=== PATIENT | female | born 1940 | race Caucasian/White ===

== ENCOUNTER 2019-09-20 10:03 | Observation (INO) | payer MEDICARE, SELFPAY ==
[2019-09-19 14:29] VITALS: BMI 25.8
[2019-09-20 07:45] VITALS: BP 171/87; PULSE 70; RESP 16; TEMP 36.6; O2SAT 96
[2019-09-20 08:05] LABS: Basophils % 0.3 %; Eosinophils % 0.1 %; Hematocrit 43.4 % (37.0-47.0); Hemoglobin 14.2 g/dL (11.5-15.3); Lymphocytes # 1.5 10^3/uL (0.8-4.8); Lymphocytes % 11.5 %; Mean Corpuscular HGB Conc 32.7 g/dL (30.0-36.0); Mean Corpuscular Hemoglobin 28.9 pg (28.0-34.0); Mean Corpuscular Volume 88.2 fL (81-99); Mean Platelet Volume 11.1 fL (7.4-10.4); Monocytes # 0.7 10^3/uL (0.2-0.9); Monocytes % 5.3 %; Neutrophils % 80.8 %; Nucleated Red Blood Cells % 0 %; Platelet Count 497 10^3/cmm (130-400); Red Blood Count 4.92 10^6/uL (4.1-5.3); Red Cell Distribution Width 13.6 % (12.1-15.1); White Blood Count 12.8 10^3/uL (4.0-10.0)
[2019-09-20 08:13] LABS: INR 1.05 (0.8-1.2)
[2019-09-20 08:17] LABS: Anion Gap 15.6 (5-19); Blood Urea Nitrogen 20 mg/dL (8-23); Calcium 8.9 mg/dL (8.5-10.5); Carbon Dioxide 25 mmol/L (22-29); Chloride 100 mmol/L (98-107); Glucose 277 mg/dL (65-115); Osmolality Calculated 288 mOsm/kg (285-295); Potassium 4.6 mmol/L (3.5-5.1); Sodium 136 mmol/L (136-145)
--- NOTE | 2019-09-20 08:45 | SUR.PREOP ---
DR GONCALVES NOTIFIED OF WBC OF 12.8. NEW ORDERS RECEIVED FOR STAT UA. DR GONCALVES ALSO QUESTIONED THIS NURSE TO WHY THE PACEMAKER REP HADN'T MADE IT YET. THE [facility] REP WAS CALLED AND HE STATES THAT THEY WERE NOT INFORMED OF TODAY'S PROCEDURE. DR GONCALVES WAS NOTIFIED AND HE STATES THAT WE NEED TO GET THE RESULTS BACK FROM THE [facility] AND GO FROM THERE.
[2019-09-20 09:32] LABS: Add Urine Microscopic? NO
[2019-09-20 09:46] LABS: Bilirubin Urine Neg (NEGATIVE); Blood Urine Neg (Negative); Glucose Urine UA 4+ (Normal); Ketones Urine Negative (Negative); Leukocyte Esterase Urine Negative (Negative); Nitrate Urine Negative (Negative); Protein Urine Neg (Negative); Specific Gravity, Urine 1.015 (1.005-1.030); Urine Appearance Clear (CLEAR); Urine Color Yellow (Yellow); Urobilinogen Urine Norm (Negative); pH Urine 6.5 (5-7)
--- NOTE | 2019-09-20 10:05 | SUR.PREOP ---
Report Called Report called to FERNANDO Vogt. Will transfer to room 268. Procedure postponed until [id number] Rep unavailability. Patient transferred via Wheelchair.
--- NOTE | 2019-09-20 14:34 | W.PM.OPSUD ---
Surgery/Procedure H&P Update DATE OF PROCEDURE: September 20, 2019 DATE H&P PERFORMED: 08/26/19 H&P UPDATE INFORMATION: I have reviewed H&P completed within last 30 days, I have examined patient prior to procedure and No changes to prior documentation PREOP DIAGNOSIS: Permanent pacemaker, [place] PLANNED PROCEDURE: Operation Date: 09/20/19 08:30 Proposed Procedures p Pacemaker Generator Change(Not Applicable) - Gera Davis MD PATIENT REASSESSED PRIOR TO SEDATION, WITH NO CHANGE NOTED: Yes PHYSICAL EXAM: alert, oriented x 3, clear to auscultation bilaterally and regular rate & rhythm AIRWAY EVAL/ANESTHESIA PLAN: normal airway, ASA III, Local Anesthesia, Risks, benefits & alternatives of sedation and/or procedure discussed and Patient agrees to continue as planned
--- NOTE | 2019-09-20 15:42 | PM.OP ---
Operative Report Date of procedure: September 20, 2019 Pre-op Diagnosis: Permanent pacemaker, AUGUSTA Procedure: PROCEDURE: PACEMAKER REVISION PREOPERATIVE DIAGNOSIS: Pacemaker elective replacement indication. POSTOPERATIVE DIAGNOSIS: Pacemaker elective replacement indication. ESTIMATED BLOOD LOSS: Around 5 milliliters. COMPLICATIONS: None. BRIEF HISTORY: The patient is an 79-year-old white female who had a permanent pacemaker implantation for symptomatic bradycardia. The patient was found to have elective replacement indication, during routine office followup evaluation. For further management of patient's condition for the symptomatic bradycardia, the patient required a pacemaker revision. The procedure was explained to the patient and her family in detail with the risks and benefits. The risks of bleeding, hematoma, vascular injury, infection and other concomitant complications were explained in detail, which the patient understood well and consented to proceed. PROCEDURES PERFORMED: 1. Explantation of the old pacemaker generator. 2. Implantation of the new generator. The patient brought to the Cardiac Croze Machine Operator. The left side of the neck and the subclavian area were cleaned and draped in a sterile fashion. 1% Xylocaine was used for local anesthetic agent. A 2 inch long incision was made just below the previous pacemaker scar. By sharp and blunt dissection, the pacemaker pocket was accessed. The old generator was delivered from the pocket. The generator was detached from the leads. The new [facility] [employer] generator was attached to the lead. The pacemaker pocket was copiously irrigated with vancomycin solution. Complete hemostasis was achieved. The lead was positioned behind the generator and the generator was attached to the pectoralis fascia by suturing with 0 Surgilon. Sponge counts were confirmed. The pacemaker pocket was closed in layers. Skin was approximated using 4-0 Vicryl. EXPLANTED DEVICE: Pacemaker Generator: Brand: Virtual [employer] DR RF Model number: [id number]. Serial number: [id number]. Date of implant: 08/12/2009 IMPLANTED DEVICES: Ventricular Lead: Date of implantation: 08/12/2009 Model number: 1688 TC/52cm Serial number:[id number] Make: [employer]. Atrial lead Date of implantation: 08/12/2009 Model number:1688TC/46cm Serial number: [id number] Make: [employer] Implanted Generator: Date of implantation : 09/20/2019 Brand: Volt. Model number: [id number] Serial number: [id number] Make: [employer] Stimulation Threshold: The ventricular sensing was 10.3 millivolts. Lead impedance was 510 and the pacing threshold was 1.0 volts at 0.4 milliseconds. The atrial lead sensing was 4.7 mV. Impedance of 531 ohms and pacing threshold of 0.75 V at 0.4 ms The pacemaker was set for DDDR mode with an upper rate of 120 and a lower rate of 60. Paced/sensed AV delay-200/150; VIP 150 A pressure dressing was applied over the pacemaker site. The patient was transferred back to medical floor in stable condition. Sponge counts were correct.
[2019-09-20 16:00] VITALS: BP 160/85; PULSE 66; RESP 16; TEMP 36.3; O2SAT 97
--- NOTE | 2019-09-20 16:45 | PC.NURSE ---
HOME MEDICATIONS DR. IVANNA MARQUEZED PATIENT TO TAKE HOME MEDICATIONS. MEDICATIONS AT BEDSIDE.
[2019-09-20 17:02] VITALS: BP 114/65; PULSE 67; RESP 16; TEMP 36.3; O2SAT 97
[2019-09-20 18:58] VITALS: BP 137/68; PULSE 70; RESP 16; TEMP 36.2; O2SAT 94
[2019-09-20 20:00] VITALS: BP 132/71; PULSE 73; RESP 17; TEMP 36.4; O2SAT 94
[2019-09-20] MEDS: acetaminophen 325 mg Tablet 650 MG PO (22:18)
[2019-09-20] MEDS: sodium chloride 0.9% 1,000 ML 75 ML IV (22:18)
[2019-09-21] VITALS: BP 131/71; PULSE 69; RESP 18; TEMP 36.8; O2SAT 95
[2019-09-21 04:00] VITALS: BP 136/73; PULSE 72; RESP 17; TEMP 36.7; O2SAT 96
--- NOTE | 2019-09-21 06:00 | ECG_ITS ---
[facility] Test Date: 2019-09-21 Pat Name: Alicia Cohn Department: Room: 268 Gender: Female Body Man: : 1940 Requested By: Gera Davis Order Number: [id number] Angelica MD: Liz Mohamud M.D. Measurements Intervals [place] Rate: 69 P: 137 WV: 191 QRS: 5 QRSD: 91 T: -6 QT: 362 QTc: 390 Interpretive Statements ELECTRONIC ATRIAL PACEMAKER MINIMAL ST DEPRESSION [0.025+ mV ST DEPRESSION] ABNORMAL RHYTHM ECG No previous ECG available for comparison Electronically Signed On 09-21-2019 22:50:05 CDT by Liz Mohamud M.D. [id number]
[2019-09-21 08:00] VITALS: BP 166/80; PULSE 74; RESP 18; TEMP 36.6; O2SAT 94
[2019-09-21 08:33] VITALS: BP 136/73; PULSE 72
--- NOTE | 2019-09-21 10:00 | PC.CHAP ---
Pastoral Care Encounter/Spiritual Assessment Type of Contact [] Declined feed elevator worker visit [] Patient/Family/Request visit [] Outpatient visit [] Follow-up visit [] Physician referral [] Code/Alert [X] Routine visit [] Staff referral [] Actively dying [] Patient sleeping [] Family support [] [] Out of room [] Palliative care [] [] Receiving care in room [] Pre-surgical visit [] Trauma [] Long length of stay [] ICU visit [] Other: Relational/Emotional Strength [] Patient feels connected with others/family/visitors/staff [] Distress [] Loneliness/isolation [] Abandonment Spirituality of Patient [] Person of Ofe [] Attends Jainism of their Ofe [] Believes in Prayer [] Reads Bible or Adventism materials [] There are Spiritual issues to be addressed Transitions Manager Rn Interventions [] Prayer [] Active listening [] Non-anxious presence [] Spiritual/emotional support [] Crisis/trauma care [] Spiritual counseling [] Bereavement support [] Provided bereavement packet [] Provided Bible/devotional materials [] Provided toy/stuffed animal, coloring book to patient or family member [] Provided Communion [] Anointing/[place] [] Salvation [] Completed spiritual assessment [] Other: Impact on Illness or Injury [] Angry [] Fearful [] Anxious [] Often cries [] Exhaustion [] Unable to work [] Unable to attend cheondoism [] Unable to walk/stand [] Unable to read [] Unable to drive [] Unable to eat/drink [] Unable to sleep [] Unable to be with family [] Patient intubated [] Other: Summary Time spent with patient
[2019-09-21 12:00] VITALS: BP 164/79; PULSE 70; RESP 16; TEMP 36.7; O2SAT 95
[2019-09-21 15:20] VITALS: BP 164/79; PULSE 70; RESP 16; TEMP 36.7; O2SAT 95
--- NOTE | 2019-09-21 18:26 | PM.SDS ---
Short Stay Summary Providers Date of Admit/Discharge: 09/21/19 Attending Provider: MD Liz Pierce MD Primary Care Provider: Jamison Menendez Chief Complaint: pacemaker generator change HPI History of Present Illness Alicia Cohn is a 79 year old female past medical history significant for hypertension, paroxysmal atrial fibrillation on dronedarone history of permanent pacemaker placement for therapeutic and bradycardia underwent generator change for AUG[place]A yesterday. Patient is not on anticoagulation due to her own refusal. Postop care remains uncomplicated. This morning she has brief episodes of spinning of the world around her while sitting she did not pass out. There is no telemetry evidence of bradyarrhythmia. Pacemaker check was performed which showed DDD R and more than 90% paced in the atrium, please note that I was informed by nurse regarding these results. Patient overall doing fine from a cardiovascular perspective she denies any further dizziness spinning of the world around her she is hemodynamically stable. She is being discharged home. She is advised to follow-up with pacemaker clinic in 1 week. Home Meds/Allergies Home Medications and Allergies Home Medications Medication Instructions Recorded Confirmed Type aspirin 325 mg tablet 325 mg PO DAILY 07/31/19 09/20/19 History digoxin 125 mcg (0.125 mg) tablet 125 mcg PO DAILY 07/31/19 09/20/19 History diltiazem HCl 120 mg 120 mg PO DAILY 07/31/19 09/20/19 History capsule,extended release 24 hr losartan 100 mg tablet 100 mg PO DAILY 07/31/19 09/20/19 History metoprolol tartrate 25 mg tablet 25 mg PO BID 07/31/19 09/20/19 History potassium chloride 10 mEq 10 meq PO DAILY 07/31/19 09/20/19 History tablet,extended release pravastatin 20 mg tablet 20 mg PO DAILY 07/31/19 09/20/19 History dronedarone 400 mg tablet 400 mg PO BID 08/01/19 09/20/19 History Allergies Allergy/AdvReac Type Severity Reaction Status Date / Time codeine Allergy Unknown Unknown Verified 09/20/19 08:24 latex Allergy rash Verified 09/20/19 08:24 PFSH Acute PFSH: Medical History Atherosclerotic heart disease of [place] coronary artery with other forms of angina pectoris Atrial fibrillation CAD (coronary artery disease) HTN (hypertension) Hx of cardiac pacemaker Pacemaker malfunction Surgical History S/P bladder repair S/P cardiac pacemaker procedure (~2009) S/P dilatation and curettage S/P hip arthroscopy (~2017) S/P PTCA (percutaneous transluminal coronary angioplasty) (~2007) 2007 S/P tubal ligation Family History Sister Hypertension Stroke Hypercholesterolemia Heart disease Cancer bladder and ovarian CA Mother Hypertension Stroke Hypercholesterolemia Brother Heart disease Social History Smoking and tobacco status: former smoker Vitals/I&O/Wt Last Vital Signs Temp 98.1 F 09/21/19 15:20 Pulse 70 09/21/19 15:20 Resp 16 09/21/19 15:20 BP 164/79 09/21/19 15:20 Pulse Ox 95 09/21/19 15:20 09/21/19 09/21/19 09/21/19 06:59 14:59 22:59 Intake Total 150 / 200 360 / 360 Balance 150 / 200 360 / 360 Physical Exam Narrative: EXAM NARRATIVE: GENERAL: Patient is alert, awake and oriented x3. Pacemaker wound is packed there is no hematoma. Patient denies any tenderness or pain NECK: No jugular vein distension. HEENT: No cyanosis. No icterus. No pallor. HEART: Regular S1 and S2. No murmur, rub or gallop. LUNGS: Clear to auscultate bilaterally. ABDOMEN: Soft, nontender and nondistended. Positive bowel sounds. No guarding, rebound or tenderness. CENTRAL NERVOUS SYSTEM: Grossly nonfocal. EXTREMITIES: Lower extremities without edema bilaterally. Hospital Course Discharge Summary: As above SSS Data Data Completed and Pending: Pending at discharge Category Date Time Status PRIMARY OPERATOR request for service Routin e Exams 09/20/19 12:00 Ordered Diagnoses at Discharge Discharge Diagnosis (1) Pacemaker end of life: Status: Acute Problem details: Status post generator change for AUGUSTA. Post op care remained uncomplicated. Follow-up with pacemaker clinic in [address] Mohamud in 4 weeks with (2) Atrial fibrillation: Status: Acute Problem details: On antiarrhythmic. Continue medicine. Patient declined anticoagulation. She is on full dose aspirin. She understand the risk of stroke and disability Qualifiers: Atrial fibrillation type: paroxysmal Qualified Code(s): I48.0 - Paroxysmal atrial fibrillation (3) HTN (hypertension): Status: Acute Problem details: Optimally controlled continue medicine. Qualifiers: Hypertension type: essential hypertension Qualified Code(s): I10 - Essential (primary) hypertension Discharge Plan Discharge Patient Disposition: Home, Self-Care Condition: Stable Prescriptions: New Keflex 500 mg capsule 500 mg PO Q6H 5 Days Qty: 20 RF: 0 iron ag,fum-C-FA-mv [id number] 151-200-1-0.8 mg tablet 1 tab PO DAILY 14 Days Qty: 14 RF: 0 Continued metoprolol tartrate 25 mg tablet 25 mg PO BID RF: 0 losartan 100 mg tablet 100 mg PO DAILY RF: 0 aspirin 325 mg tablet 325 mg PO DAILY RF: 0 digoxin 125 mcg (0.125 mg) tablet 125 mcg PO DAILY RF: 0 potassium chloride 10 mEq tablet extended release 10 meq PO DAILY RF: 0 diltiazem HCl [Cardizem CD] 120 mg capsule,extended release 24hr 120 mg PO DAILY RF: 0 pravastatin 20 mg tablet 20 mg PO DAILY RF: 0 Multaq 400 mg tablet 400 mg PO BID RF: 0 Discharge Orders: Discharge Order (Routine); Ordered 09/20/19 Ordered By: Gera Davis Referrals: Janette Medel FNP [Nurse Practitioner] - 09/25/19 (For wound check and pacemaker check. Please call patient at home with a follow up appointment for September 24. Faxed information to clinic.) Discharge Activity: Resume usual activity Patient Instructions: Cephalexin (By mouth), Iron Supplements (By mouth), Pacemaker (DC), Iron Rich Diet (DC), Post Pacemaker - Ryan Activity Restrictions/Additional Instructions: Limit the movements of the left shoulder to 45 degrees for the next 1 week. Keep the pacemaker area clean and dry. Take the antibiotics and the multivitamins as prescribed. Please follow the post pacemaker instructions Discharge Date/Time: 09/21/19 15:50 Attestations Medical Necessity Statement*: Patient is doing fine from cardiovascular perspective she can be discharged Time Spent in Patient Care*: less than 30 min Quality Metrics Clinical Quality Measures: During this hospital stay, did patient experience: None Coding Level of Care Code Established Pt Acute Operator Command Support Systems for Chg Fwd Patient Type Established History Expanded Problem Focused Exam Expanded Problem Focused Medical Decision Making Moderate Complexity Diagnoses Pacemaker end of life Z45.018 Atrial fibrillation I48.0 Atrial fibrillation type: paroxysmal HTN (hypertension) I10 Hypertension type: essential hypertension
== END 2019-09-21 15:50 | disposition home or self-care (01) ==
LOC: MEDSURG 10:05
PROVIDERS: Admitting Provider Internal Medicine Cardiovascular Disease; PCP Family Medicine; Visit Provider Internal Medicine Cardiovascular Disease
DX: Z45.010 Encounter for checking and testing of cardiac pacemaker pulse generator [battery] (principal); I48.0 Paroxysmal atrial fibrillation; I10 Essential (primary) hypertension; Z79.82 Long term (current) use of aspirin; I25.118 Atherosclerotic heart disease of native coronary artery with other forms of angina pectoris; Z87.891 Personal history of nicotine dependence
CPT/HCPCS: 12345; 33213; 36415; 80048; 81003; 85025; 85610; 93005; 96365; 97165; C1769; C1785; G0378; J0690; J2250; J3010; J7030; J7050

== ENCOUNTER → 2021-07-07 14:10 | Outpatient (BNVA) | payer MEDICARE, SELFPAY | PROVIDERS: PCP Family Medicine; Visit Provider Surgery | DX: R13.10 Dysphagia, unspecified (principal); Z87.19 Personal history of other diseases of the digestive system | CPT/HCPCS: 99203 ==

== ENCOUNTER → 2021-07-14 15:18 | Outpatient (BNVA) | payer MEDICARE, SELFPAY | PROVIDERS: PCP Family Medicine; Visit Provider Internal Medicine Cardiovascular Disease | DX: I25.118 Atherosclerotic heart disease of native coronary artery with other forms of angina pectoris (principal); I10 Essential (primary) hypertension; I48.0 Paroxysmal atrial fibrillation; Z95.0 Presence of cardiac pacemaker | CPT/HCPCS: 99214 ==

== ENCOUNTER 2021-09-02 09:16 | Day surgery (SDC) | payer MEDICARE, SELFPAY ==
[2021-08-31 13:57] VITALS: BMI 25.1
[2021-09-02 09:53] VITALS: BP 182/90; PULSE 70; RESP 16; TEMP 36.1; O2SAT 94
[2021-09-02] MEDS: sodium chloride 0.9% 1,000 ML 30 ML IV (10:11)
--- NOTE | 2021-09-02 10:38 | P.ANESASSM_ITS ---
Pre-Anesthetic Assessment Height/Weight: Height 1.65 m Weight 68.492 kg Temp Pulse Resp BP Pulse Ox 97 F L 70 16 182/90 94 09/02/21 09:53 09/02/21 09:53 09/02/21 09:53 09/02/21 09:53 09/02/21 09:53 Preop Diagnosis: Dysphagia Operation Date: 09/02/21 11:00 Proposed Procedures p EGD Dilation W/ Balloon 83579/R13.10(Not Applicable) - Radu Kruse MD Familial anesthetic complications: none Was Beta Richard taken within 24 hours: Yes Was Clonidine taken within 24 hours: N/A Last intake: Intake Last Liquid Date 09/01/21 Last Liquid Time 17:00 Last Solid Date 09/01/21 Last Solid Time 17:00 Social No alcohol and No tobacco Exam alert, oriented x 3, clear to auscultation bilaterally and regular rate & rhythm Airway Submandibular: within normal limits Cervical ROM: within normal limits Mallampati: Class II Comments: Comments: missing teeth CV/HEM Atrial Fibrillation, Arrythmia (Pacemaker ), Coronary Artery Disease (S/P PTCA) and Hypertension Hx of bladder repair GI Gastroesophageal Reflux Disease and Hiatal Hernia Dysphagia with hx of food bolus Metabolic None reported Musc/skel Osteoarthritis/DJD Neuropsych None reported Anesthetic Plan ASA status: 3 (81 year old female with hx of atrial fibrillation, htn, CAD, s/p pacemaker insertion with dysphagia and hx of food impaction ) Anesthesia: Anesthesia Evaluation, General and MAC Other: I discussed with the patient risks, goals, and benefits of MAC and general anes thesia. We discussed spectrum of MAC anesthesia including conversion to general as well as possibility of recall of intraoperative stimuli including discomfort/pain. Patient agrees to proceed with MAC. Risk of > 500 ml blood loss (7ml/kg in children): No Medications/Allergies Home Medications Medication Instructions Recorded Confirmed Last Taken Type aspirin 325 mg tablet 325 mg PO DAILY 07/31/19 08/31/21 08/29/21 History digoxin 125 mcg (0.125 mg) tablet 125 mcg PO DAILY 07/31/19 09/02/21 09/01/21 History diltiazem HCl 120 mg 120 mg PO DAILY 07/31/19 09/02/21 09/02/21 History capsule,extended release 24 hr (Cardizem CD) losartan 100 mg tablet 100 mg PO DAILY 07/31/19 09/02/21 09/01/21 History metoprolol tartrate 25 mg tablet 25 mg PO BID 07/31/19 09/02/21 09/02/21 History potassium chloride 10 mEq 10 meq PO DAILY 07/31/19 09/02/21 09/01/21 History tablet,extended release pravastatin 20 mg tablet 20 mg PO DAILY 07/31/19 09/02/21 09/01/21 History dronedarone 400 mg tablet (Multaq) 200 mg PO BID tab 10/16/20 09/02/21 09/01/21 History Allergies Allergy/AdvReac Type Severity Reaction Status Date / Time codeine Allergy Unknown Unknown Verified 09/02/21 10:41 latex Allergy rash Verified 09/02/21 10:41 Current Medications Generic Name Dose Route Start Last Admin Trade Name Freq PRN Reason Stop Dose Admin Sodium Chloride 1,000 mls @ 30 mls/hr 09/02/21 09:30 09/02/21 10:11 Sodium Chloride 0.9% IV 09/03/21 09:29 30 mls/hr .Q24H JASON Administration PFSH Anesthesia Medical History Atherosclerotic heart disease of [place] coronary artery with other forms of angina pectoris Atrial fibrillation On antiarrhythmic. Continue medicine. Patient declined anticoagulation. She is on full dose aspirin. She understand the risk of stroke and disability CAD (coronary artery disease) HTN (hypertension) Optimally controlled continue medicine. Hx of cardiac pacemaker Pacemaker Pacemaker malfunction Surgical History S/P bladder repair S/P cardiac pacemaker procedure (~2009) S/P dilatation and curettage S/P hip arthroscopy (~2017) S/P PTCA (percutaneous transluminal coronary angioplasty) (~2007) 2007 S/P tubal ligation Family History Sister Hypertension Stroke Hypercholesterolemia Heart disease Cancer bladder and ovarian CA Mother Hypertension Stroke Hypercholesterolemia Brother Heart disease Social History Smoking and tobacco status: never smoked Data Anesthesia Cardiac Studies: 2 No Data to Display
--- NOTE | 2021-09-02 10:40 | P.HP_ITS ---
Same Day Surgery H&P Indication for Procedure/HPI DATE OF PROCEDURE: September 02, 2021 CHIEF COMPLAINT/INDICATIONFOR SURGICAL PROCEDURE: Difficulty in swallow PREOP DIAGNOSIS: Dysphagia PLANNED PROCEDURE: Operation Date: 09/02/21 11:00 Proposed Procedures p EGD Dilation W/ Balloon 04799/R13.10(Not Applicable) - Radu Kruse MD 07/07/2021 This is a pleasant 81 years old female patient presents today to my office with history of dysphagia.? She comes escorted by her spouse.? She gives a history of hiatal hernia and she describes that food stuck down her throat .? Particularly to solid food.? Patient reports that she has a left upper chest pacemaker placed for her cardiac condition.? Giving history of history of atrial fibrillation.? No available studies for speech pathology in the form of modified barium swallow.? No recent EGDs. Patient currently have dentures and is not clear if they are well fitting.? She reports about 15 years ago she had an EGD and undergone esophageal dilation per her description.? Otherwise she does better with soft GI diet Interim history 09/02/2021 Patient comes today for diagnostic EGD with possible biopsy and possible balloon dilation and upper GI study still pending. ROS All systems have been reviewed negative except as for the above or per problem list. Medications/Allergies* Home Medications Medication Instructions Recorded Confirmed Type aspirin 325 mg tablet 325 mg PO DAILY 07/31/19 08/31/21 History digoxin 125 mcg (0.125 mg) tablet 125 mcg PO DAILY 07/31/19 09/02/21 History diltiazem HCl 120 mg 120 mg PO DAILY 07/31/19 09/02/21 History capsule,extended release 24 hr (Cardizem CD) losartan 100 mg tablet 100 mg PO DAILY 07/31/19 09/02/21 History metoprolol tartrate 25 mg tablet 25 mg PO BID 07/31/19 09/02/21 History potassium chloride 10 mEq 10 meq PO DAILY 07/31/19 09/02/21 History tablet,extended release pravastatin 20 mg tablet 20 mg PO DAILY 07/31/19 09/02/21 History dronedarone 400 mg tablet (Multaq) 200 mg PO BID tab 10/16/20 09/02/21 History Allergies/Adverse Reactions Allergy/AdvReac Type Severity Reaction Status Date / Time codeine Allergy Unknown Unknown Verified 09/02/21 10:41 latex Allergy rash Verified 09/02/21 10:41 Current Medications: Generic Name Dose Route Start Last Admin Trade Name Freq PRN Reason Stop Dose Admin Sodium Chloride 1,000 mls @ 30 mls/hr 09/02/21 09:30 09/02/21 10:11 Sodium Chloride 0.9% IV 09/03/21 09:29 30 mls/hr .Q24H JASON Administration Pertinent History/Comorbid Conditions* Medical History (Updated 07/10/21 @ 09:52 by Radu Kruse MD) Atherosclerotic heart disease of [place] coronary artery with other forms of angina pectoris Atrial fibrillation On antiarrhythmic. Continue medicine. Patient declined anticoagulation. She is on full dose aspirin. She understand the risk of stroke and disability CAD (coronary artery disease) HTN (hypertension) Optimally controlled continue medicine. Hx of cardiac pacemaker Pacemaker Pacemaker malfunction Surgical History (Updated 08/26/19 @ 14:20 by Gera Davis MD) S/P bladder repair S/P cardiac pacemaker procedure (~2009) S/P dilatation and curettage S/P hip arthroscopy (~2017) S/P PTCA (percutaneous transluminal coronary angioplasty) (~2007) 2007 S/P tubal ligation Family History (Updated 07/31/19 @ 12:43 by Sonal Kern RN) Heart disease Sister Brother Hypercholesterolemia Sister Mother Cancer Sister bladder and ovarian CA Hypertension Sister Mother Stroke Sister Mother Social History Smoking and tobacco status: never smoked Pertinent Exam Findings alert, oriented x 3, regular rate & rhythm and procedure specific exam findings (Abdominal exam nontender nondistended soft) Recommendations Surgery/Procedure today (EGD with possible biopsy possible balloon dilation) Coding Level of Care Code Acute Investigator Operator for Jerica Dhaliwal
[2021-09-02 11:23] VITALS: BP 140/72; PULSE 70; RESP 20; TEMP 36.1; O2SAT 96
--- NOTE | 2021-09-02 11:24 | ANE.PACU2 ---
Documented by User: Madeline Garcia CRNA 09/02/21 11:24 Inpatient post-anesthesia follow up: Airway intact: Yes Vital signs: Temperature 97 F Pulse Rate 70 Respiratory Rate 20 Blood Pressure 140/72 Pulse Oximetry 96 Oxygen Delivery Me thod Room Air Oxygen Flow Rate Fraction of Inspir ed Oxygen Hydration adequate: Yes Nausea and vomiting: No Pain level: 1 Mental status: Baseline
[2021-09-02 11:30] VITALS: BP 135/72; PULSE 70; RESP 16; O2SAT 95
[2021-09-02 11:38] VITALS: BP 153/73; PULSE 70; RESP 16; O2SAT 95
--- NOTE | 2021-09-02 14:51 | ANE.PACU2 ---
Inpatient post-anesthesia follow up: Airway intact: Yes Vital signs: Temperature 97 F Pulse Rate 70 Respiratory Rate 16 Blood Pressure 153/73 Pulse Oximetry 95 Oxygen Delivery Me thod Room Air Oxygen Flow Rate Fraction of Inspir ed Oxygen Hydration adequate: Yes Nausea and vomiting: No Pain level: 1 Mental status: Baseline
== END 2021-09-02 12:01 | disposition home or self-care (01) ==
PROVIDERS: PCP Family Medicine; Visit Provider Surgery
DX: R13.10 Dysphagia, unspecified (principal); K22.2 Esophageal obstruction; K44.9 Diaphragmatic hernia without obstruction or gangrene; K29.70 Gastritis, unspecified, without bleeding; Z95.0 Presence of cardiac pacemaker; I25.118 Atherosclerotic heart disease of native coronary artery with other forms of angina pectoris; I10 Essential (primary) hypertension
CPT/HCPCS: 43239; 88305; J2704; J7030

== ENCOUNTER → 2021-09-16 14:23 | Outpatient (BNVA) | payer MEDICARE, SELFPAY | PROVIDERS: PCP Family Medicine; Visit Provider Surgery | DX: Z09 Encounter for follow-up examination after completed treatment for conditions other than malignant neoplasm (principal); R13.10 Dysphagia, unspecified | CPT/HCPCS: 99213 ==

== ENCOUNTER 2021-10-22 08:45 | Outpatient (CLI) | payer MEDICARE, SELFPAY ==
--- NOTE | 2021-10-22 08:52 | FL_ITS ---
WS: [id number] Barium swallow and esophagram, upper GI series with air, 10/22/2021 Clinical Data: DYSPHAGIA, UNSPECIFIED Comparison: None. Fluoroscopy time: 1min [id number] # of spot films: 12 Findings: The patient swallowed the thick and thin barium, and it flowed through the hypopharynx without hesita tion. No stricture, mass, polyp or erosion was seen. There Is minimal posterior impingement from ante rior osteoarthritic spurring C4-C7. The barium flowed into the esophagus and there was normal motility throughout. No hiatal hernia, stri cture, polyp, mass, erosion or ulcer was noted. There was minimal reflux present. The barium passed into the stomach which was well distended. No erosion, polyp, mass or deformity could be seen. No gas tric ulcer was present. There is a permanent pacemaker. There are orthopedic cages fusing the right S I joint. Barium then passed into the duodenal bulb which distended normally without ulceration. The proximal small bowel is normal. FL/FL upper GI w air* [id number] Impression: 1. Minimal posterior impingement on the hypopharynx from cervical osteoarthriti s. 2. Minimal reflux at the gastroesophageal junction. 3. Normal stomach, duodenum and proximal small bowel.
== END 2021-10-22 08:46 | disposition home or self-care (01) ==
LOC: RAD 08:46
PROVIDERS: PCP Family Medicine; Visit Provider Surgery
DX: R13.10 Dysphagia, unspecified (principal)
CPT/HCPCS: 74246

== ENCOUNTER → 2021-11-01 10:00 | Outpatient (BNVA) | payer MEDICARE, SELFPAY | PROVIDERS: PCP Family Medicine; Visit Provider Surgery | DX: Z09 Encounter for follow-up examination after completed treatment for conditions other than malignant neoplasm (principal); R13.10 Dysphagia, unspecified | CPT/HCPCS: 99213 ==

== ENCOUNTER → 2021-11-12 10:57 | Outpatient (BNVA) | payer MEDICARE, SELFPAY | PROVIDERS: PCP Family Medicine; Visit Provider Internal Medicine Cardiovascular Disease | DX: Z45.010 Encounter for checking and testing of cardiac pacemaker pulse generator [battery] (principal) | CPT/HCPCS: 93280 ==

== ENCOUNTER → 2022-05-31 09:51 | Outpatient (BNVA) | payer MEDICARE, SELFPAY | PROVIDERS: PCP Family Medicine; Visit Provider Internal Medicine Cardiovascular Disease | DX: I48.0 Paroxysmal atrial fibrillation (principal); I10 Essential (primary) hypertension; Z95.0 Presence of cardiac pacemaker; I25.118 Atherosclerotic heart disease of native coronary artery with other forms of angina pectoris; Z87.891 Personal history of nicotine dependence; Z79.82 Long term (current) use of aspirin | CPT/HCPCS: 99214 ==

== ENCOUNTER 2022-06-23 05:58 | Outpatient (CLI) | payer MEDICARE, SELFPAY ==
--- NOTE | 2022-06-23 06:15 | USCV_ITS ---
Alicia Cohn Age: 82 Gender: F : 1940 Exam Date: 06/23/2022 06:23 Ordering Phys: Gera Davis MD ([email or web address] [place]) Technologist: Mena Solorio Exam Location: [facility] [place] Indication: PACER AND STENT IN HISTORY BP: 191 / 75 HR: 69 Rhythm: Sinus Technical Quality: Adequate MEASUREMENTS (Male / Female) Normal Values 2D ECHO LV Diastolic Diameter PLAX 4.6 cm 4.2 - 5.9 / 3.9 - 5.3 cm LV Systolic Diameter PLAX 2.3 cm LV Chamber Size 4.4 cm IVS Diastolic Thickness 1.0 cm 0.6 - 1.0 / 0.6 - 0.9 cm IVS Systolic Thickness 0.9 cm LVPW Diastolic Thickness 1.2 cm 0.6 - 1.0 / 0.6 - 0.9 cm LVPW Systolic Thickness 2.0 cm RV Chamber Size 2.3 cm LVOT Diameter 2.1 cm LV Ejection Fraction 2D Teich 80.7 % LV Ejection Fraction MOD 2C 50.7 % LV Ejection Fraction 2C AL 55.0 % LA Diameter 4.2 cm LA Width 2.8 cm LA Height 4.4 cm RA Width 2.2 cm RA Height 3.1 cm Aorta at Sinotubular Diameter 3.0 cm IVC Diameter 1.7 cm M-MODE Aortic Annulus Diameter 3.5 cm LA Ao Ratio MM 1.4 MV E Point Septal Separation 1.4 cm DOPPLER AV Peak Velocity 186.7 cm/s LVOT Peak Velocity 115.0 cm/s AV Area Cont Eq vti 2.3 cm squared AV Area Cont Eq pk 2.1 cm squared MV Peak Velocity 141.0 cm/s MV Area PHT 2.6 cm squared Mitral E to A Ratio 0.6 MV E' Velocity 38.0 cm/s Mitral E to MV E' Ratio 13.1 Mitral E to LV E' Lateral Ratio 11.4 Mitral E to LV E' Septal Ratio 15.5 TR Peak Velocity 225.6 cm/s TR Peak Gradient 20.4 mmHg TR Mean Velocity 171.3 cm/s TR Mean Gradient 13.9 mmHg TR Velocity Time Integral 64.6 cm TV Peak E Velocity 74.0 cm/s Right Atrial Pressure 3.0 mmHg Pulmonary Artery Systolic Pressu 23.4 mmHg RV Acceleration Time 0.1 s RV Ejection Time 0.3 s RV AcT/ET 0.3 FINDINGS Left Ventricle Normal left ventricular size and systolic function, EF 58 %. Mild left ventricular hypertrophy. No regional wall motion abnormalities. Right Ventricle Catheter/pacemaker wire in the right ventricular cavity. Right Atrium Catheter/pacemaker wire in the right atrial appendage. Left Atrium Moderately increased left atrial size. Mitral Valve Trace mitral valve regurgitation. Aortic Valve Thickened aortic valve. Mild aortic valve regurgitation. Tricuspid Valve Trace to mild tricuspid valve regurgitation. Estimated pulmonary artery peak systolic pressure 23 mmHg Pulmonic Valve No gross abnormalities noted Pericardium No pericardial effusion. Aorta Normal aortic annulus size. IVC Inferior vena cava not visualized. CONCLUSIONS Normal left ventricular size and systolic function, EF 58 %. Mild left ventricular hypertrophy. No regional wall motion abnormalities. Moderately increased left atrial size. Trace mitral valve regurgitation. Thickened aortic valve. Mild aortic valve regurgitation. Trace to mild tricuspid valve regurgitation. Estimated pulmonary artery peak systolic pressure 23 mmHg. There is no pericardial effusion. Pacemaker wire in the right atrium and right ventricle. Compared to the study from 04/13/2016, there may not be a significant change Dr Gera Davis MD FAC (Electronically Signed) Final Date: 25 June 2022 16:18 S
== END 2022-06-23 05:59 | disposition home or self-care (01) ==
LOC: RAD 06:01
PROVIDERS: PCP Family Medicine; Visit Provider Internal Medicine Cardiovascular Disease
DX: R06.09 Other forms of dyspnea (principal); I34.0 Nonrheumatic mitral (valve) insufficiency; I35.8 Other nonrheumatic aortic valve disorders; I07.1 Rheumatic tricuspid insufficiency; Z95.0 Presence of cardiac pacemaker
CPT/HCPCS: 93306

== ENCOUNTER → 2022-12-20 10:44 | Outpatient (BNVA) | payer MEDICARE, SELFPAY | PROVIDERS: PCP Family Medicine; Visit Provider Internal Medicine Cardiovascular Disease | DX: Z95.0 Presence of cardiac pacemaker (principal); I25.118 Atherosclerotic heart disease of native coronary artery with other forms of angina pectoris; I10 Essential (primary) hypertension; I48.0 Paroxysmal atrial fibrillation; Z87.891 Personal history of nicotine dependence | CPT/HCPCS: 99214 ==

== ENCOUNTER → 2023-07-18 09:46 | Outpatient (BNVA) | payer MEDICARE, SELFPAY | PROVIDERS: PCP Family Medicine; Visit Provider Internal Medicine Cardiovascular Disease | DX: I25.118 Atherosclerotic heart disease of native coronary artery with other forms of angina pectoris (principal); I10 Essential (primary) hypertension; Z95.0 Presence of cardiac pacemaker; Z87.891 Personal history of nicotine dependence; I48.91 Unspecified atrial fibrillation; Z79.82 Long term (current) use of aspirin | CPT/HCPCS: 99214 ==

== ENCOUNTER → 2023-08-22 13:35 | Outpatient (BNVA) | payer MEDICARE, SELFPAY | PROVIDERS: PCP Family Medicine; Visit Provider Dermatology | DX: D48.5 Neoplasm of uncertain behavior of skin (principal); L57.0 Actinic keratosis; L82.1 Other seborrheic keratosis; L81.4 Other melanin hyperpigmentation; S70.361A Insect bite (nonvenomous), right thigh, initial encounter; X58.XXXA Exposure to other specified factors, initial encounter | CPT/HCPCS: 11102; 17000; 99203 ==

== ENCOUNTER → 2023-12-04 09:21 | Outpatient (BNVA) | payer MEDICARE, SELFPAY | PROVIDERS: PCP Family Medicine; Visit Provider Specialist | DX: M17.12 Unilateral primary osteoarthritis, left knee (principal) | CPT/HCPCS: 20610; 73560; 73565; 99204 ==

== ENCOUNTER → 2024-01-15 09:58 | Outpatient (BNVA) | payer MEDICARE, SELFPAY | PROVIDERS: PCP Family Medicine; Visit Provider Specialist | DX: M17.12 Unilateral primary osteoarthritis, left knee (principal) | CPT/HCPCS: 99214 ==

== ENCOUNTER → 2024-01-23 14:11 | Outpatient (BNVA) | payer MEDICARE, SELFPAY | PROVIDERS: PCP Family Medicine; Visit Provider Nurse Practitioner Family | DX: I25.10 Atherosclerotic heart disease of native coronary artery without angina pectoris (principal); I10 Essential (primary) hypertension; Z95.0 Presence of cardiac pacemaker; Z86.79 Personal history of other diseases of the circulatory system | CPT/HCPCS: 99213 ==

== ENCOUNTER → 2024-02-14 16:57 | Outpatient (BNVA) | payer MEDICARE, SELFPAY | PROVIDERS: PCP Family Medicine; Visit Provider Specialist | DX: Z01.818 Encounter for other preprocedural examination (principal) | CPT/HCPCS: 36415; 80053; 81001; 85025; 87086 ==

== ENCOUNTER → 2024-02-15 13:09 | Outpatient (BNVA) | payer MEDICARE, SELFPAY | PROVIDERS: PCP Family Medicine; Visit Provider Nurse Practitioner Family | DX: L82.1 Other seborrheic keratosis (principal); L81.4 Other melanin hyperpigmentation; L57.8 Other skin changes due to chronic exposure to nonionizing radiation; Z86.007 Personal history of in-situ neoplasm of skin; Z87.2 Personal history of diseases of the skin and subcutaneous tissue; L82.0 Inflamed seborrheic keratosis; L57.0 Actinic keratosis | CPT/HCPCS: 17000; 17110; 99213 ==

== ENCOUNTER 2024-03-04 16:13 | Outpatient (CLI) | payer MEDICARE, SELFPAY ==
--- NOTE | 2024-03-04 16:30 | CT_ITS ---
WS: [id number] CT LEFT KNEE, NONCONTRAST TECHNIQUE: Noncontrast CT of the LEFT knee to include the LEFT hip and ankle. CLINICAL INFORMATION: PER [facility] PROTOCOL COMPARISON: None. DLP: 976.[address] scans at [facility] use at least one of these dose optimization techniques: automated e xposure control; mA and/or kV adjustment per patient size (includes targeted exams where dose is matc hed to clinical indication); or iterative reconstruction. FINDINGS: Vascular calcification. Sigmoid diverticulosis. Vascular calcification. Popliteal cyst. Advanced tric ompartment arthritis LEFT knee. Hypertrophic patella. Osteochondroma along the posterior medial joint capsule Small suprapatellar effusion. Vascular calcification. CT/CT knee [facility] [id number] IMPRESSION: Images obtained for preoperative purposes.
== END 2024-03-04 16:14 | disposition home or self-care (01) ==
LOC: RAD 16:17
PROVIDERS: PCP Family Medicine; Visit Provider Specialist
DX: M17.12 Unilateral primary osteoarthritis, left knee (principal); M71.22 Synovial cyst of popliteal space [Baker], left knee; R93.89 Abnormal findings on diagnostic imaging of other specified body structures; D16.22 Benign neoplasm of long bones of left lower limb; K57.30 Diverticulosis of large intestine without perforation or abscess without bleeding
CPT/HCPCS: 73700

== ENCOUNTER → 2024-03-13 08:52 | Outpatient (BNVA) | payer MEDICARE, SELFPAY | PROVIDERS: PCP Family Medicine; Visit Provider Family Medicine | DX: Z01.818 Encounter for other preprocedural examination (principal); Z95.0 Presence of cardiac pacemaker | CPT/HCPCS: 81000; 93005 ==

== ENCOUNTER 2024-03-14 10:27 | Observation (INO) | payer MEDICARE, SELFPAY ==
[2024-03-14] VITALS (20 sets, daily range): BP systolic 103–181; BP diastolic 06–101; PULSE 69–87; RESP 13–18; TEMP 35.4–37.1; O2SAT 95–98
[2024-03-14] MEDS: sodium chloride 0.9% 1,000 ML 30 ML IV (06:15)
[2024-03-14] MEDS: acetaminophen 1,000 MG/100 ML PIGGYBACK 400 MG IV ×3 (06:19→22:15)
[2024-03-14] MEDS: CELEcoxib 200 mg Capsule 400 MG PO (06:21)
[2024-03-14] MEDS: gabapentin 300 mg Capsule PO (06:21)
--- NOTE | 2024-03-14 06:55 | P.HPUD_ITS ---
Surgery/Procedure H&P Update DATE OF PROCEDURE: March 14, 2024 DATE H&P PERFORMED: 02/14/24 H&P UPDATE INFORMATION: I have reviewed H&P completed within last 30 days, I have examined patient prior to procedure, No changes to prior documentation and [place] [facility] [place] indicated PLANNED PROCEDURE: Operation Date: 03/14/24 07:00 Proposed Procedures p Dandre Robot Total Knee Arthroplasty(Left) - Fanta Conley MD Related Problem List Diagnoses (1) Primary osteoarthritis of left knee:
[2024-03-14] MEDS: ceFAZolin 2,000 mg SDV 2000 MG IVP ×3 (07:07→23:58)
[2024-03-14] MEDS: tranexamic acid 1,000 mg/10mL SDV 1000 MG IV (07:08)
--- NOTE | 2024-03-14 07:49 | ANES.PREANE2 ---
Pre-Anesthetic Assessment Height/Weight: Height 1.66 m Weight 69.4 kg Temp Pulse Resp BP Pulse Ox O2 Del Method 97.9 F 69 18 158/78 95 Room Air 03/14/24 05:59 03/14/24 05:59 03/14/24 05:59 03/14/24 05:59 03/14/24 05:59 03/14/24 05:59 Operation Date: 03/14/24 07:00 Proposed Procedures p Dandre Robot Total Knee Arthroplasty(Left) - Fanta Conley MD Familial anesthetic complications: none Was Beta Richard taken within 24 hours: Yes Was Clonidine taken within 24 hours: N/A Last intake: Intake Last Liquid Date 03/13/24 Last Liquid Time 20:00 Last Solid Date 03/13/24 Last Solid Time 20:00 Social No alcohol and No tobacco Exam alert, oriented x 3, clear to auscultation bilaterally and regular rate & rhythm Airway Submandibular: within normal limits Cervical ROM: within normal limits Mallampati: Class II Dentition: false CV/HEM Atrial Fibrillation, Arrythmia, Coronary Artery Disease and Hypertension Pacemaker Metabolic Hyperlipidemia [facility] [place] Osteoarthritis/DJD Anesthetic Plan ASA status: 3 Anesthesia: Regional (specify below) (SAB with adductor blk) Medications/Allergies Home Medications Medication Instructions Recorded Confirmed Last Taken Type aspirin 325 mg tablet 325 mg PO DAILY 07/31/19 03/14/24 03/07/24 History digoxin 125 mcg (0.125 mg) tablet 125 mcg PO DAILY 07/31/19 03/14/24 03/12/24 History diltiazem HCl 120 mg 120 mg PO DAILY 07/31/19 03/14/24 03/12/24 History capsule,extended release 24 hr (Cardizem CD) potassium chloride 10 mEq 10 meq PO DAILY 07/31/19 03/14/24 03/13/24 History tablet,extended release pravastatin 20 mg tablet 20 mg PO DAILY 07/31/19 03/14/24 03/12/24 History dronedarone 400 mg tablet (Multaq) 200 mg PO BID 10/16/20 03/14/24 03/13/24 History metoprolol tartrate 50 mg tablet 50 mg PO Q12H #180 tabs 05/31/22 03/14/24 03/12/24 Rx hydralazine 25 mg tablet 25 mg PO TID #270 tabs 08/22/22 03/14/24 03/13/24 Rx losartan 100 mg tablet 50 mg PO DAILY 12/20/22 03/14/24 03/12/24 History Allergies Allergy/AdvReac Type Severity Reaction Status Date / Time codeine Allergy Unknown Unknown Verified 03/13/24 10:12 latex Allergy rash Verified 03/13/24 10:12 Current Medications Generic Name Dose Route Start Last Admin Trade Name Freq PRN Reason Stop Dose Admin Sodium Chloride 1,000 mls @ 30 mls/hr 03/14/24 05:45 03/14/24 06:15 Sodium Chloride 0.9% IV 03/15/24 05:44 30 mls/hr .Q24H JASON Administration PFSH Anesthesia Medical History Pacemaker 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 Continue medicine. Patient declined anticoagulation. She is on full dose aspirin. She understand the risk of stroke and disability HTN (hypertension) Optimally controlled continue medicine. Hx of cardiac pacemaker Surgical History History of esophagogastroduodenoscopy S/P tubal ligation S/P cardiac pacemaker procedure (~2009) S/P hip arthroscopy (~2017) S/P bladder repair S/P dilatation and curettage S/P PTCA (percutaneous transluminal coronary angioplasty) (~2007) 2007 Family History Sister Hypertension Stroke Hypercholesterolemia Heart disease Cancer bladder and ovarian CA Mother Hypertension Stroke Hypercholesterolemia Brother Heart disease Social History Smoking and tobacco/nicotine status: never used tobacco/nicotine Data Anesthesia Cardiac Studies: Echocardiogram 06/23/22 Anesthesia Procedures Nerve Block Nerve Block 1: Main Anesthesia: spinal anesthesia block Time Out Performed: Yes Consent: requested by attending/covering physician, from patient, risks and benefits reviewed and patient agrees to proceed Nerve block location: adductor canal (left) Anesthesia monitors applied: pulse oximetry, EKG, BP cuff and oxygen Nerve block position: supine Anesthetic Used: ropivicaine 0.5% Amount of anesthesia used (mL): 20 Ultrasound used to: recognize landmarks Nerve Stimulator Used?: No Interscalene/Femoral BLK: 4 stimuplex 21 g needle used for position and inplane approach Injection: neg aspiration of heme Patient Tolerated Procedure: well Complications: none
[2024-03-14] MEDS: VANCOMYCIN ADD-Vantage 1,000 MG VIAL 1000 MG XX (08:19)
[2024-03-14] MEDS: BUPivacaine liposome 13.3 mg/mL SDV 20 mL 133 MG INFILTRATI (08:20)
[2024-03-14] MEDS: ceFAZolin 2,000 mg SDV 2000 MG IRRIGATION (08:20)
--- NOTE | 2024-03-14 10:26 | XR_ITS ---
WS: [id number] Left knee, AP and lateral views, 03/14/2024 Clinical Data: OR PICS Comparison: Bilateral knees, left knee, 12/04/2023 Findings: The components of the knee arthroplasty are in good position. Postoperative air is present in the sheyla nt. XR/XR knee LT 1-2V [id number] Impression: Left knee arthroplasty.
--- NOTE | 2024-03-14 11:31 | PC.NURSE ---
Pt transferred up to med surg floor, room 273 via bed from OR, accompanied by FERNANDO Yarbrough. This nurse assumed care of pt at this time.
--- NOTE | 2024-03-14 11:32 | ANE.PACU2 ---
Inpatient post-anesthesia follow up: Airway intact: Yes Vital signs: Temperature 97.2 F Pulse Rate 70 Respiratory Rate 17 Blood Pressure 138/81 Pulse Oximetry 95 Oxygen Delivery Me thod Room Air Oxygen Flow Rate Fraction of Inspir ed Oxygen Hydration adequate: Yes Nausea and vomiting: No Pain level: 1 Mental status: Baseline
--- NOTE | 2024-03-14 11:41 | PM.OP ---
Operative Report Date of procedure: March 14, 2024 Pre-op diagnosis: Primary osteoarthritis left knee Post-op diagnosis: Primary osteoarthritis left knee Post-op findings: Severe degenerative osteoarthritis right knee with complete denudement of cartilage Procedure done: Right total knee arthroplasty with Dandre guidance Implants: The [employer]ova total knee system with a size 4 triathlon beaded cruciate retaining femur left, a triathlon titanium tibial component size 4 beaded, a triathlon X3 tibial bearing CS insert size 4 X 9 mm and a beaded triathlon titanium asymmetric patella size 32 x 10 mm Specimens removed/disposition: Bone, disposed of Pathology: None Surgeon: Fanta Conley MD Manager Relocation: Lani Wright, nurse practitioner who services were required for retraction, exposure, closure, and completion of the surgical procedure Anesthesia: Spinal (With MAC, ASA 3) Estimated blood loss (mL): 240 Tourniquet time (min): 0 (Not utilized) IV fluids (mL): 1,700 Urine output (mL): 900 Complications: None Findings: Severe degenerative osteoarthritis. Condition: stable Disposition: PACU (Then to floor for postoperative rehabilitation and pain management) Brief History: This 83-year-old woman presented to the office complaining of significant left knee pain which limited her in activities of daily living. She lacks approximately 5 degrees of extension and had pain with any range of motion. She is unable to take anti-inflammatory medications secondary to heart medications. She has significant limitations in her activities of daily living. Her pain woke her up from a deep sleep, limited her walking, and it keeps her up at night. She has worn a brace as well. Left total knee arthroplasty was recommended, and the patient agreed. She is scheduled for this send questions were answered and consents were signed in the office. Procedure: The patient was brought to the operating theater, and after undergoing adequate spinal anesthesia with MAC, ASA 3, the left lower extremity was prepped with DuraPrep and draped in usual fashion following placement of a tourniquet high on the leg. The leg was then draped free. Tourniquet was placed on the leg but was not elevated throughout the surgical procedure. Following exposure of the site of surgery, a surgical pause was performed. At the time of the surgical pause, we confirmed the site and side of surgery. Additionally, we confirmed the appropriate and timely administration of preoperative antibiotics, Ancef 2 g and Transexemic acid 1 g.? The availability of equipment was confirmed, and the patient's identity was verbalized as well.? An additional transexemic acid 1 g will be given to the patient's on the floor. Following the surgical pause, an incision was made centering over the patella continuing proximally and distally as necessary to allow access to the knee joint. Dissection continued through skin and soft tissues using a scalpel. Hemostasis was obtained using electrocautery. The skin incision was followed by a median parapatellar arthrotomy. The leg was extended and the patella was able to be displaced laterally. Appropriate arrays and markers were placed in appropriate position for use of the Dandre. Preoperative planning had been accomplished and was discussed in detail with the [facility] compliance representative. Intraoperative mapping of the femur and tibia was accomplished after the arrays were placed. Once we had accomplished the [facility] mapping, we began the appropriate resections for placement of the prosthesis. The plan was for a cruciate retaining right total knee arthroplasty. Once appropriate mapping had been accomplished retraction was established using manual retraction by the [facility] leg positioner and retractors. The knee was evaluated. There was eburnation particularly of the medial femoral condyle.? There were large osteophytes circumferentially about the trochlear groove as well as the patella and medial tibial plateau.? After balancing the knee within the Dandre program, the appropriate bone resection was accomplished. Initial resection was accomplished on the tibia followed by appropriate resections on the femur. We had performed a medial release at the beginning of the procedure to allow for placement of the array. The femur was cut for a size 4 component. Proximal tibia was evaluated and it was felt that appropriate size for the tibia was a size 4 which matched the femoral component. A trial reduction was accomplished after osteophytes had been removed, the medial and lateral meniscus were excised, and bone cuts had been accomplished as above. We had removed the anterior cruciate ligament at the beginning of the case and preserved the posterior cruciate ligament. Trial reduction was accomplished with a size 4 femoral cruciate retaining component and a size 4 CS tibial bearing insert which was 9 mm in thickness. With this, we had excellent stability, full extension, and appropriate alignment. Trial components were removed after the femur had been drilled. Prior to removal of the tibial tray which had been pinned in position with appropriate rotation as determined by the Dandre plan, we broached the tibia. Subsequently, the 4 drill holes were made for the prosthetic component. All trial components had been removed, and the wound was irrigated. Plans were made for insertion of the prosthetic components. Prior to this, the patella was manually prepared. After resection of the articular surface with the jigging system, it was measured and measured a 32 mm patella. We resected approximately 10 mm of patella, and patellar height was restored with the patellar component. Once again, the wound was irrigated. The Tritanium tibia was impacted into position.? The beaded femur was then impacted into position in a cementless fashion. The CS tibial insert was placed prior to placement of the femoral component. The patella was pressed into position with a patellar clamp.? Exparel was injected about the components deep and superficially. The knee was then copiously irrigated with betadine and saline and suctioned dry. Attention was then directed to closure. Closure was accomplished with 0 Vicryl in the fascial tissues followed by a running #1 strata fix 1 from proximal to distal and 1 from distal to proximal.? This was followed by Surgiflo and vancomycin powder. Subcutaneous tissues were closed with 2-0 Monocryl strata fix, and the skin was closed in a running subcuticular fashion with 3-0 Monocryl strata fix.? A sterile dressing was then placed consisting of Dermabond Prineo, OpSite, sterile soft roll including over the foot, and an Ridge wrap. The patient was returned the Recovery Room in a satisfactory condition. X-rays were obtained and reviewed there.? The patient will be discharged to the floor for postoperative rehabilitation and pain management. Related Problem List Diagnoses (1) Primary osteoarthritis of left knee:
[2024-03-14] MEDS: chlorhexidine gluconate 0.12% Btl 473 mL 30 ML MUCOUS MEM ×3 (12:08→22:09)
[2024-03-14] MEDS: metoprolol tartrate 50 mg Tablet PO ×2 (12:08→23:58)
[2024-03-14] MEDS: CELEcoxib 200 mg Capsule PO ×2 (12:08→23:58)
[2024-03-14] MEDS: hyDRALAzine 25 mg Tablet PO ×2 (14:00→22:09)
[2024-03-14] MEDS: oxyCODONE 5 mg IR Tab/Cap PO (14:00)
[2024-03-14] MEDS: tranexamic acid 1,000 MG/100 ML PREMIX 600 MG IV (14:04)
[2024-03-14] MEDS: calcium carbonate 500 mg Chew Tablet 1000 MG PO (17:07)
[2024-03-14] MEDS: mupirocin oint 22 gm 1 APPLIC NASAL (17:08)
[2024-03-14] MEDS: iron polysaccharide complex 150 mg Capsule PO (17:09)
[2024-03-14] MEDS: sennosides-docusate Tablet 2 TAB PO (17:09)
[2024-03-15] VITALS (9 sets, daily range): BP systolic 151–180; BP diastolic 60–83; PULSE 70–85; RESP 15–18; TEMP 36.6–36.8; O2SAT 93–99
[2024-03-15 04:44] LABS: Basophils # 0.1 10^3/uL (0.0-0.1); Basophils % 0.4 %; Eosinophils # 0.3 10^3/uL (0.0-0.8); Eosinophils % 2.4 %; Hematocrit 32.6 % (36-47); Lymphocytes # 1.3 10^3/uL (0.8-4.8); Lymphocytes % 10.8 %; Mean Corpuscular HGB Conc 32.8 g/dL (30-55); Mean Corpuscular Hemoglobin 29.4 pg (27-33); Mean Corpuscular Volume 89.6 fl (85-98); Mean Platelet Volume 10.8 fL (7.4-10.4); Monocytes # 1.2 10^3/uL (0.2-0.9); Monocytes % 10.4 %; Neutrophils # 8.85 10^3/uL (1.8-7.7); Neutrophils % 75.5 %; Nucleated Red Blood Cells % 0 %; Platelet Count 345 10^3/cmm (157-399); Red Blood Count 3.64 10^6/uL (3.85-5.65); Red Cell Distribution Width 13.4 % (12.1-15.1); White Blood Count 11.73 10^3/uL (3.29-11.43)
[2024-03-15] MEDS: ceFAZolin 2,000 mg SDV 2000 MG IVP (05:53)
[2024-03-15] MEDS: oxyCODONE 5 mg IR Tab/Cap PO ×2 (05:53→12:10)
[2024-03-15] MEDS: acetaminophen 1,000 MG/100 ML PIGGYBACK 400 MG IV (05:54)
[2024-03-15] MEDS: atorvastatin 40 mg Tablet 20 MG PO (08:40)
[2024-03-15] MEDS: calcium carbonate 500 mg Chew Tablet 1000 MG PO (08:41)
[2024-03-15] MEDS: potassium chloride ER 10 mEq Tablet PO (08:41)
[2024-03-15] MEDS: losartan 50 mg Tablet PO (08:41)
[2024-03-15] MEDS: dilTIAZem ER (24HR) 120 mg Capsule PO (08:41)
[2024-03-15] MEDS: hyDRALAzine 25 mg Tablet PO (08:41)
[2024-03-15] MEDS: cholecalciferol (vitamin D3) 1,000 unit Tablet 1000 UNIT PO (08:41)
[2024-03-15] MEDS: sennosides-docusate Tablet 2 TAB PO (08:41)
[2024-03-15] MEDS: aspirin 325 mg Tablet PO (08:41)
[2024-03-15] MEDS: multivitamin therapeutic Tablet 1 TAB PO (08:41)
[2024-03-15] MEDS: iron polysaccharide complex 150 mg Capsule PO (08:41)
[2024-03-15] MEDS: digoxin 125 mcg Tablet PO (08:42)
[2024-03-15] MEDS: mupirocin oint 22 gm 1 APPLIC NASAL (08:45)
[2024-03-15] MEDS: chlorhexidine gluconate 0.12% Btl 473 mL 30 ML MUCOUS MEM ×2 (08:46→12:11)
[2024-03-15] MEDS: acetaminophen 500 mg Tablet 1000 MG PO (12:10)
[2024-03-15] MEDS: CELEcoxib 200 mg Capsule PO (12:11)
[2024-03-15] MEDS: metoprolol tartrate 50 mg Tablet PO (12:11)
--- NOTE | 2024-03-15 13:18 | PM.DCS ---
Discharge Providers Date of Admission: 03/14/24 10:27 Date of Discharge: March 15, 2024 Attending Provider at Admission: Fanta Conley MD Attending Provider at Discharge: Fanta Conley MD Primary Care Provider: Jamison Menendez Diagnoses at Discharge Discharge Diagnosis (1) Status post total left knee replacement not using cement: Status: Acute Permanent problem details: Date of procedure: March 14, 2024 Diagnosis: Primary osteoarthritis left knee Procedure done: Right total knee arthroplasty with Dandre guidance Implants: The Anitra total knee system with a size 4 triathlon beaded cruciate retaining femur left, a triathlon titanium tibial component size 4 beaded, a triathlon X3 tibial bearing CS insert size 4 X 9 mm and a beaded triathlon titanium asymmetric patella size 32 x 10 mm (2) Primary osteoarthritis of left knee: Status: Acute Reason for Visit Reason for Visit: M17.12 Brief History: This 83-year-old woman presented to the office complaining of significant left knee pain which limited her in activities of daily living. She lacks approximately 5 degrees of extension and had pain with any range of motion. She is unable to take anti-inflammatory medications secondary to heart medications. She has significant limitations in her activities of daily living. Her pain woke her up from a deep sleep, limited her walking, and it keeps her up at night. She has worn a brace as well. Left total knee arthroplasty was recommended, and the patient agreed. She is scheduled for this send questions were answered and consents were signed in the office. Hospital Course Hospital Course This 83-year-old woman was admitted under observation status following right total knee arthroplasty. The procedure was well-tolerated. She was admitted overnight for pain management and observation. On the first postoperative day, the patient worked with the therapist. She was able to ambulate safely. She also was able to perform appropriately on the stairs. Therefore, decision was made to send her home she will receive home physical therapy and will continue her rehabilitation there. Questions are answered. The patient is discharged home to follow-up with us in the office as previously scheduled. Physical Exam Const: COMMON NORMALS: no acute distress, average body habitus, patient oriented x3 and alert GENERAL APPEARANCE: cooperative and comfortable ORIENTATION/CONSCIOUSNESS: Yes awake HENMT: COMMON NORMALS: normocephalic and atraumatic HEAD & SCALP: normocephalic and atraumatic Eye: GENERAL EYE: appearance normal, both eyes and all related structures Chest: COMMONS NORMALS: normal inspection of the chest Resp: COMMON NORMALS: normal respiratory effort EFFORT & INSPECTION: Yes able to speak in complete sentences and Yes symmetric chest movement Extremity: RIGHT LOWER EXTREMITY: Yes knee joint (Large outer dressing is removed. Smaller dressing is without drainage) Right knee: Yes ROM (Not evaluated, but able to almost straight leg raise) and Yes neurovascular exam (Intact distally with no evidence of DVT) Neuro: COMMON NORMALS: patient oriented x3 SENSORIUM/ORIENTATION: Yes alert Psych: COMMON NORMALS: mental status grossly normal APPEARANCE: Yes grossly normal ATTITUDE: Yes calm and Yes engaged ATTENTION/CONCENTRATION: Yes attention grossly intact Skin: COMMON NORMALS: no rashes or lesions noted GENERAL SKIN EXAM: no rashes or lesions noted Urinary Catheter Management: 2-way Urethral Latex Free: Cath Placed During This Visit: yes, but has since been removed by the nurse Reason for Continuing Indwelling Catheter: Perioperative Use in Selected Surgeries Urinary Catheter Date of Insertion: 03/14/24 Urinary Catheter Time of Insertion: 07:45 Date Urinary Catheter Removed: 03/15/24 Time Urinary Catheter Discontinued: 06:15 Discharge Data Studies Completed and Pending Completed Studies During Hospitalization Category Date Time Status XR knee LT 1-2V [id number] Routine Exams 03/14/24 10:26 Completed Radiology Impressions Knee X-Ray 03/14/24 10:26 Impression: Left knee arthroplasty. Laboratory Results WBC 11.73 10^3/uL (3.29-11.43) H 03/15/24 04:05 RBC 3.64 10^6/uL (3.85-5.65) L 03/15/24 04:05 Hgb 10.70 g/dL (11.27-16.99) L 03/15/24 04:05 Hct 32.6 % (36-47) L 03/15/24 04:05 MCV 89.6 fl (85-98) 03/15/24 04:05 MCH 29.4 pg (27-33) 03/15/24 04:05 MCHC 32.8 g/dL (30-55) 03/15/24 04:05 RDW 13.4 % (12.1-15.1) 03/15/24 04:05 Plt Count 345 10^3/cmm (157-399) 03/15/24 04:05 MPV 10.8 fL (7.4-10.4) H 03/15/24 04:05 Neut % (Auto) 75.5 % 03/15/24 04:05 Lymph % (Auto) 10.8 % 03/15/24 04:05 [place] % (Auto) 10.4 % 03/15/24 04:05 Eos % (Auto) 2.4 % 03/15/24 04:05 Baso % (Auto) 0.4 % 03/15/24 04:05 Neut # (Auto) 8.85 10^3/uL (1.8-7.7) H 03/15/24 04:05 Lymph # (Auto) 1.3 10^3/uL (0.8-4.8) 03/15/24 04:05 [place] # (Auto) 1.2 10^3/uL (0.2-0.9) H 03/15/24 04:05 Eos # (Auto) 0.3 10^3/uL (0.0-0.8) 03/15/24 04:05 Baso # (Auto) 0.1 10^3/uL (0.0-0.1) 03/15/24 04:05 Nucleated RBC % (auto) 0 % 03/15/24 04:05 Nucleated RBCs # 0.0 /100WBC 03/15/24 04:05 Vitals Last Vital Signs Temp 98.1 F 03/15/24 12:00 Pulse 85 03/15/24 12:00 Resp 18 03/15/24 12:10 BP 180/62 03/15/24 12:00 Pulse Ox 99 03/15/24 12:10 O2 Del Method Room Air 03/15/24 12:00 Discharge Plan Discharge Patient Disposition: Home Health Service Condition: Stable Prescriptions: New celecoxib 200 mg Capsule 200 mg PO 1XD 30 Days Qty: 30 0RF acetaminophen 500 mg Tablet 1,000 mg PO Q8H 15 Days Qty: 90 0RF oxycodone 5 mg Tablet 5 mg PO Q4H PRN (Reason: Moderate To Severe Pain) 7 Days Qty: 40 0RF Continued aspirin 325 mg tablet 325 mg PO DAILY Hold Instructions: Resume on 09/07/21. digoxin 125 mcg (0.125 mg) tablet 125 mcg PO DAILY potassium chloride 10 mEq tablet extended release 10 meq PO DAILY diltiazem HCl [Cardizem CD] 120 mg capsule,extended release 24hr 120 mg PO DAILY pravastatin 20 mg tablet 20 mg PO DAILY Multaq 400 mg tablet 200 mg PO BID Rx Instructions: must administer with a meal/food take 1/2 tab twice a day losartan 100 mg tablet 50 mg PO DAILY metoprolol tartrate 50 mg tablet 50 mg PO Q12H Qty: 180 3RF hydralazine 25 mg tablet 25 mg PO TID Qty: 270 2RF Discharge Orders: Discharge Order (Routine); Ordered 03/15/24 Ordered By: Fanta Conley Referrals: [facility] [Outside] Fanta Conley MD [Physician] - 03/27/24 3:15 pm Discharge Diet: Advance as tolerated and Usual diet Discharge Activity: Increase activity as tolerated, Limit activity as instructed, Use walker/crutches as instructed and As per PT/OT instructions Patient Instructions: Acetaminophen (By mouth), Celecoxib (By mouth), Oxycodone, Slow Release (By mouth), Acute Wound Care (DC), Total Knee Replacement (DC), Opioid Safety, Post Anesthesia Care Activity Restrictions/Additional Instructions: Weightbearing as tolerated. Range of motion, gait training, and ambulation per physical therapy. Ice to left knee. You may shower, and get your dressing wet, but do not soak your knee. If the dressing lifts up and begins to leak, remove it. Discharge Attestations Time Spent in Discharge Care*: greater than 30 min Specific Discharge Activities: educating patient, documenting/other paperwork and evaluating patient/reviewing data Quality Metrics Clinical Quality Measures [ No reported AMI, CVA or VTE this stay] Coding Level of Care Code Acute Code for Chg Fwd Diagnoses Status post total left knee replacement not using cement Z96.652 Primary osteoarthritis of left knee M17.12
== END 2024-03-15 13:31 | disposition home health service (06) ==
LOC: MEDSURG 10:28
PROVIDERS: Admitting Provider Specialist; PCP Family Medicine; Visit Provider Specialist
PROC: 8E0Y0CZ Robotic Assisted Procedure of Lower Extremity, Open Approach (ICD-10-PCS; CPT 27447; principal; 2024-03-14 07:00)
DX: M17.12 Unilateral primary osteoarthritis, left knee (principal); I48.91 Unspecified atrial fibrillation; I25.10 Atherosclerotic heart disease of native coronary artery without angina pectoris; I10 Essential (primary) hypertension; Z95.0 Presence of cardiac pacemaker
CPT/HCPCS: 20985; 27447; 36415; 51702; 73560; 85025; 97110; 97116; 97161; 97165; C1776; C9290; G0378; J0131; J0171; J0690; J2250; J2371; J2704; J2795; J3370; J7030

== ENCOUNTER → 2024-03-27 15:36 | Outpatient (BNVA) | payer MEDICARE, SELFPAY | PROVIDERS: PCP Family Medicine; Visit Provider Specialist | DX: Z98.890 Other specified postprocedural states (principal); Z96.652 Presence of left artificial knee joint; M17.12 Unilateral primary osteoarthritis, left knee | CPT/HCPCS: 73560; 73565; 99024 ==

== ENCOUNTER 2024-05-07 06:00 | Outpatient (RCR) | payer MEDICARE, SELFPAY | END 2024-06-03 23:59 | disposition home or self-care (01) | LOC: SPT 06:00 | PROVIDERS: Visit Provider Specialist | DX: Z47.1 Aftercare following joint replacement surgery (principal); Z96.652 Presence of left artificial knee joint | CPT/HCPCS: 97110; 97112; 97162; 97530 ==

== ENCOUNTER → 2024-05-13 14:50 | Outpatient (BNVA) | payer MEDICARE, SELFPAY | PROVIDERS: Visit Provider Specialist | DX: Z98.890 Other specified postprocedural states (principal); Z96.652 Presence of left artificial knee joint | CPT/HCPCS: 73560; 73565; 99024 ==

== ENCOUNTER 2024-06-04 06:00 | Outpatient (RCR) | payer MEDICARE, SELFPAY | END 2024-07-03 23:59 | disposition home or self-care (01) | LOC: SPT 06:00 | PROVIDERS: Visit Provider Specialist | DX: Z47.1 Aftercare following joint replacement surgery (principal); Z96.652 Presence of left artificial knee joint | CPT/HCPCS: 97110; 97112; 97530 ==

== ENCOUNTER → 2024-08-15 09:36 | Outpatient (BNVA) | payer MEDICARE, SELFPAY | PROVIDERS: Visit Provider Nurse Practitioner Family | DX: L30.9 Dermatitis, unspecified (principal); L57.8 Other skin changes due to chronic exposure to nonionizing radiation; X32.XXXA Exposure to sunlight, initial encounter; L81.4 Other melanin hyperpigmentation; L82.1 Other seborrheic keratosis; Z08 Encounter for follow-up examination after completed treatment for malignant neoplasm; Z86.007 Personal history of in-situ neoplasm of skin; L57.0 Actinic keratosis | CPT/HCPCS: 17000; 99213 ==

== ENCOUNTER → 2024-08-22 14:06 | Outpatient (BNVA) | payer MEDICARE, SELFPAY | PROVIDERS: PCP Family Medicine; Visit Provider Internal Medicine Cardiovascular Disease | DX: I25.118 Atherosclerotic heart disease of native coronary artery with other forms of angina pectoris (principal); I10 Essential (primary) hypertension; Z95.0 Presence of cardiac pacemaker; Z86.79 Personal history of other diseases of the circulatory system | CPT/HCPCS: 99214 ==

== ENCOUNTER → 2024-09-16 12:53 | Outpatient (BNVA) | payer MEDICARE, SELFPAY | PROVIDERS: PCP Family Medicine; Visit Provider Specialist | DX: S80.02XA Contusion of left knee, initial encounter (principal); W19.XXXA Unspecified fall, initial encounter; Z96.652 Presence of left artificial knee joint | CPT/HCPCS: 73560; 73565; 99213 ==

== ENCOUNTER → 2025-02-20 09:30 | Outpatient (BNVA) | payer MEDICARE, SELFPAY | PROVIDERS: PCP Family Medicine; Visit Provider Nurse Practitioner Family | DX: I25.10 Atherosclerotic heart disease of native coronary artery without angina pectoris (principal); Z95.0 Presence of cardiac pacemaker; I48.91 Unspecified atrial fibrillation; I10 Essential (primary) hypertension | CPT/HCPCS: 99214 ==

== ENCOUNTER → 2025-02-24 12:42 | Outpatient (BNVA) | payer MEDICARE, SELFPAY | PROVIDERS: PCP Family Medicine; Visit Provider Internal Medicine Cardiovascular Disease | DX: Z45.018 Encounter for adjustment and management of other part of cardiac pacemaker (principal) | CPT/HCPCS: 93296 ==